=== PATIENT | female | born 1960 | race Caucasian/White ===

== ENCOUNTER 2016-12-21 17:52 | Emergency (ER) | payer SELFPAY ==
[~2016-12-21] VITALS: Ht 157.5 cm; Wt 57.6 kg
[2016-12-21 18:00] VITALS: BP 127/73; PULSE 77; RESP 16; TEMP 98.7; O2SAT 97
--- NOTE | 2016-12-21 18:18 | PD ---
HPI Chief Complaint: Musculoskeletal Complaint Time Seen by Provider: 18:16 Travel History International Travel<30 days: No Contact w/Intl Traveler<30days: No Traveled to known affect area: No History of Present Illness HPI 56-year-old female presents to the emergency department for evaluation of right arm pain that started approximate 30 minutes prior to arrival. Patient states she did some yard work this morning, but denies any traumatic injury. She states the pain does radiate down the right arm. She denies any worsening pain with movement. She denies any fevers or chills. She has no chronic medical problems and takes no medications. She denies a chest pain or shortness of breath. No abdominal pain. No vomiting. PFSH Past Medical History Medical History: Denies Significant Hx Diminished Hearing: No Tetanus Vaccination: Unknown ?: Not Past Surgical History Surgical History: No Previous Surgery Social History Alcohol Use: Yes (OCC) Tobacco Use: No Substance Use: No Allergies-Medications (Allergen,Severity, Reaction): Coded Allergies: No Known Allergies (Unverified , 12/21/16) Reported Meds & Prescriptions Reported Meds & Active Scripts Active Prednisone 20 Mg Tab 40 Mg PO DAILY 4 Days Robaxin (Methocarbamol) 750 Mg Tab 750 Mg PO TID PRN Diclofenac Potassium 50 Mg Tab 50 Mg PO TID PRN Review of Systems Except as stated in HPI: all other systems reviewed are Neg Physical Exam Narrative GENERAL: Well-developed well-nourished female patient, ambulatory. Afebrile. SKIN: Warm and dry. HEAD: Normocephalic. Atraumatic. EYES: No scleral icterus. No injection or drainage. NECK: Supple, trachea midline. No JVD or lymphadenopathy. CARDIOVASCULAR: Regular rate and rhythm without murmurs, gallops, or rubs. Right radial pulse is 2+. Capillary refill less than 2 seconds to the digits of the right hand. RESPIRATORY: Breath sounds equal bilaterally. No accessory muscle use. Lungs sounds are clear to auscultation. GASTROINTESTINAL: Abdomen soft, non-tender, nondistended. MUSCULOSKELETAL: No cyanosis, or edema. I am unable to reproduce any tenderness over the right shoulder or right arm. There is no worsening pain with movement. She points to the upper arm and states the pain shoots down her arm. No trapezius muscle tenderness. BACK: Nontender without obvious deformity. No CVA tenderness. No midline cervical spine tenderness. She has full rotation cervical spine without pain or stiffness. Data Data Last Documented VS Vital Signs Date Time Temp Pulse Resp B/P Pulse Ox O2 Delivery O2 Flow Rate FiO2 12/21/16 18:00 98.7 77 16 127/73 97 Orders Electrocardiogram (12/21/16 ) Ketorolac Inj (Toradol Inj) (12/21/16 18:30) Orphenadrine Inj (Norflex Inj) (12/21/16 18:30) Prednisone (Deltasone) (12/21/16 18:30) MDM Medical Decision Making Medical Screen Exam Complete: Yes Emergency Medical Condition: Yes Medical Record Reviewed: Yes Differential Diagnosis Radiculopathy versus muscle strain versus muscle spasm Narrative Course 56-year-old female presents to the emergency department for evaluation of right arm pain for 30 minutes. Due to her atypical symptoms of unable to reproduce the pain with movement or palpation, EKG is performed. EKG shows sinus rhythm, heart rate [address] changes and is reassuring. Patient is given Toradol 60 mg IM, Norflex 60 mg IM, prednisone 60 mg by mouth for pain. She'll be discharged with a prescription for diclofenac, Robaxin, prednisone. Diagnosis Primary Impression: Radiculopathy affecting upper extremity Referrals: Primary Care Physician call for appointment Patient Instructions: Cervical Radiculopathy (ED), General Instructions Additional Instructions: Take diclofenac as instructed as needed with food for pain. Take Robaxin as directed as needed. Take prednisone as instructed. Start this tomorrow. Follow-up with your primary care physician. Return to the emergency department for any acute worsening of symptoms. Med/Other Pt SpecificInfo: Prescription(s) given Scripts Prednisone 20 Mg Tab40 Mg PO DAILY 4 Days Ref 0 Prov:Soha Langford 12/21/16 Methocarbamol (Robaxin)750 Mg Epe158 Mg PO TID PRN (MUSCLE SPASM) #21 TAB Ref 0 Prov:Soha Langford 12/21/16 Diclofenac Potassium 50 Mg Tab50 Mg PO TID PRN (PAIN SCALE 1 TO 10) #21 TAB Ref 0 Prov:Soha Langford 12/21/16 Disposition: 01 DISCHARGE HOME Condition: Stable Soha Langford Dec 21, 2016 18:18
[2016-12-21] MEDS ORDERED: ROBA750T PO (18:28)
[2016-12-21] MEDS ORDERED: PRED20 PO (18:28)
[2016-12-21] MEDS ORDERED: DICL50TA PO (18:28)
[2016-12-21] MEDS ORDERED: ORPHENADRINE INJ 60 MG/2 ML AMP IM ONE (18:30)
[2016-12-21] MEDS ORDERED: KETOROLAC TROMETHAMINE 60 MG/2 ML (IM) VIAL IM ONE (18:30)
[2016-12-21] MEDS ORDERED: predniSONE 20 MG TAB PO ONE (18:30)
--- NOTE | 2016-12-23 20:43 | EKG ---
Date Performed: 12/21/2016 Time Performed: 18:23:10 PTAGE: 56 years EKG: Sinus rhythm . rSr'(V1) - probable normal variant Anterior T wave changes are nonspecific Borderline ECG NO PREVIOUS TRACING DOCTOR: Ron Rowland Interpretating Date/Time 12/23/2016 20:41:56
[2017-05-15] MEDS ORDERED: IMIT50TA PO (15:23)
== END 2016-12-21 18:48 | disposition home or self-care (01) ==
LOC: PHEFT 17:52
DX: M54.12 Radiculopathy, cervical region (principal); X58.XXXA Exposure to other specified factors, initial encounter; Y93.H2 Activity, gardening and landscaping; Y99.9 Unspecified external cause status; Y92.096 Garden or yard of other non-institutional residence as the place of occurrence of the external cause
CPT/HCPCS: 93005; 96372; 99283; J1885; J2360; J7512